=== PATIENT | male | born 1940 | race Caucasian/White ===

== ENCOUNTER 2016-09-11 16:11 | Emergency (ER) | payer MEDICARE, OTHER ==
[~2016-09-11 16:11] MED LIST: ADVIL COLD; ALLERGY INJ SC; ALTACE2.5 MG; BAYER81 MG; CALCIUM + D T1 UDTAB PO; DYAZIDE 37.5/251 CAP PO; FISH OIL 1,2001 CAP PO; FLEXERIL10 MG PO; FLOMAX0.4 MG; GARLIC OIL1 CAP PO; GLUCOSAMINE-CH1 EAC8 PO; MAXZIDE PO; NASACORT10 GM; NORCO 5/3251 TAB PO; SENOKOT-S TABLE1 TAB PO; TYLENOL PO; VIT C PO; VIT D 3 PO; ZEGERID 20 MG C1 CAP PO; ZYRTEC10 MG PO; [UNRECOGNIZED DRUG - OTHER]; [UNRECOGNIZED DRUG - OTHER] PO
[2016-09-11] MEDS ORDERED: FLONASE ALLERG9.9 ML (16:16)
[2016-09-11] MEDS ORDERED: MAXZIDE 37.5 M1 EAC1 PO (16:16)
[2016-09-11] MEDS ORDERED: ATORVASTATIN CA10 M1 PO (16:16)
[2016-09-11] MEDS ORDERED: COMPLETE MULTI1 EAC3 PO (16:27)
[2016-09-11] MEDS ORDERED: GLUCOSAMINE-CH1 EA52 PO (16:27)
[2016-09-11] MEDS ORDERED: CALCIUM 600 +1 EA10 PO (16:28)
[2016-09-11] MEDS ORDERED: GARLIC1000 M1 PO (16:28)
[2016-09-11] MEDS ORDERED: FISH OIL OMEGA1 EAC2 PO (16:28)
[2016-09-11] MEDS ORDERED: VITAMIN C1000 M1 PO (16:28)
[2016-09-11] MEDS ORDERED: VITAMIN D32000 UNI3 PO (16:29)
[2016-09-11] MEDS ORDERED: SALINE NASAL SP30 M1 (16:29)
[2016-09-11] MEDS ORDERED: PROBIOTIC1 EA10 PO (16:30)
[2016-09-11] MEDS ORDERED: TURMERIC COMPL1 EACH PO (16:30)
[2016-09-11] MEDS ORDERED: CINNAMON500 M1 PO (16:31)
[2016-09-11] MEDS ORDERED: GLUCOSAMINE &1 EAC1 PO (16:53)
[2016-09-11] MEDS ORDERED: DGL PO (16:54)
[2016-09-11] MEDS ORDERED: ZYRTEC10 M7 PO (16:55)
[2016-09-11 17:03] LABS: BASO % 0.5 % (0-2); EOS % 1.6 % (0-7); EOSINOPHIL ABSOLUTE COUNT 0.1 tho/cmm (0.0-0.7); HCT-HEMATOCRIT 42.2 % (36.0-53.5); HGB-HEMOGLOBIN 14.9 gm/dl (13.5-17.0); IMMATURE GRANULOCYTES ABSOLUTE 0.01 tho/cmm (0-0.03); IMMATURE GRANULOCYTES PERCENT 0.2 % (0-0.3); LYMPH % 26.6 % (20-45); LYMPH ABSOLUTE COUNT 1.7 tho/cmm (0.8-4.5); MCH (MEAN CORPUSCULAR HGB) 30.9 pg (28.0-32.0); MCHC MEAN CORPUSCULAR HGB CONC 35.3 % (32.0-36.0); MCV (MEAN CELL VOLUME) 87.6 fl (82.0-96.0); MEAN PLATELET VOLUME 10.7 cmc (9.4-12.4); MONO % 9.5 % (0-12); MONOCYTE ABSOLUTE COUNT 0.6 tho/cmm (0.0-1.2); NEUTROPHIL ABSOLUTE COUNT 3.8 tho/cmm (1.6-8.0); NEUTROPHIL-AUTOMATED 3.8 tho/cmm (1.6-8.0); NEUTROPHILS % 61.6 % (40-80); PLATELET COUNT 174 tho/cmm (150-450); RED BLOOD COUNT 4.82 mil/cmm (4.40-5.70); RED CELL DISTRIBUTION WIDTH 13.8 % (12.4-16.4); WHITE BLOOD COUNT 6.2 tho/cmm (4.0-10.0)
[2016-09-11 17:21] LABS: URINE BILIRUBIN NEGATIVE (NEG); URINE BLOOD NEGATIVE (NEG); URINE GLUCOSE (UA) NEGATIVE (NEG); URINE KETONE NEGATIVE (NEG); URINE LEUKOCYTE ESTERASE NEGATIVE (NEG); URINE NITRITE NEGATIVE (NEG); URINE PROTEIN NEGATIVE (NEG); URINE SPECIFIC GRAVITY 1.005 (1.003-1.030)
[2016-09-11 17:35] LABS: URINE APPEARANCE CLEAR; URINE COLOR YELLOW
[2016-09-11 17:42] LABS: ALB/GLOB RATIO 0.9 (0.8-2.0); ALBUMIN 3.7 g/dl (3.5-5.0); ALKALINE PHOSPHATASE 41 U/L (33-138); BILIRUBIN,TOTAL 0.6 mg/dl (0.0-1.5); BLOOD UREA NITROGEN 23 mg/dl (6-24); CALCIUM 8.8 mg/dl (8.5-10.5); CARBON DIOXIDE-VENOUS 19 mmol/L (22-32); CHLORIDE 107 mmol/l (96-110); CREATININE 1.26 mg/dl (0.60-1.30); LIPASE 192 U/L (73-393); SODIUM 140 mmol/L (135-145); T4 (THYROXINE) 10.4 ug/dl (5.0-12.6); eGFR VALUE FOR BLACK 64 mL/Min
[2016-09-11 17:47] LABS: TSH-THYROID STIMULATING HORM. 1.19 uIU/ml (0.40-3.80)
[2016-09-11 17:54] LABS: ANION GAP 18 mmol/L (0-20); AST/SGOT 30 U/L (10-40); GLUCOSE 88 mg/dL (70-110)
[2016-09-11 17:57] LABS: ALT/SGPT 36 U/L (12-78)
== END 2016-09-11 19:40 ==
LOC: EDMED 16:11
PROVIDERS: Emergency Medicine
DX: R42 Dizziness and giddiness (principal); R00.1 Bradycardia, unspecified; I10 Essential (primary) hypertension; Z85.46 Personal history of malignant neoplasm of prostate; Z85.828 Personal history of other malignant neoplasm of skin; Z98.890 Other specified postprocedural states; Z79.899 Other long term (current) drug therapy; Z88.8 Allergy status to other drugs, medicaments and biological substances
CPT/HCPCS: J7030; Q9967